=== PATIENT | female | born 1980 | race Caucasian/White ===

== ENCOUNTER 2016-07-31 10:44 | Emergency (ER) | payer OTHER ==
[~2016-07-31] VITALS: Ht 170.2 cm; Wt 90.5 kg
[2016-07-31] MEDS ORDERED: MOTRIN800 MG PO (12:56)
[2016-07-31] MEDS ORDERED: DIFLUCAN150 MG PO (12:56)
[2016-07-31 13:28] VITALS: BP 119/75
== END 2016-07-31 13:28 | disposition home or self-care (01) ==
LOC: EME 10:44
DX: H66.92 Otitis media, unspecified, left ear (principal); H72.92 Unspecified perforation of tympanic membrane, left ear
CPT/HCPCS: 99281; 99283

== ENCOUNTER 2016-08-16 17:18 | Emergency (ER) | payer OTHER ==
[~2016-08-16] VITALS: Ht 170.2 cm; Wt 87.0 kg
[~2016-08-16 17:18] MED LIST: DIFLUCAN150 MG PO; MOTRIN800 MG PO
[2016-08-16 17:53] LABS: HEMATOCRIT 38.4 % (36.0-46.0); MCH 31.3 PG (29.0-34.0); MCHC 33.3 G/DL (30.0-36.0); MCV 93.9 FL (83-99); MEAN PLAT.VOLUME 10.5 uM^3 (9.5-12.4); PLATELET COUNT 321 K/uL (156-360); RBC DIS.WIDTH-CV 12.3 % (11.8-14.6); RBC DIS.WIDTH-SD 42.5 % (39-53); RED BLOOD COUNT 4.09 M/uL (3.80-5.20); WHITE BLOOD COUNT 7.3 K/uL (4.1-10.2)
[2016-08-16 18:02] LABS: CHLORIDE 108 mEq/L (99-109); POTASSIUM 4.2 mEq/L (3.7-5.4); SODIUM 141 mEq/L (136-147)
[2016-08-16 18:04] LABS: GLUCOSE 92 mg/dL (70-99)
[2016-08-16 18:05] LABS: ADD MIUA? YES; BILIRUBIN NEGATIVE; BLOOD NEGATIVE; GLUCOSE (STRIP) NEGATIVE; KETONES 5; LEUKOCYTES NEGATIVE; NITRITE NEGATIVE; PROTEIN (STRIP) NEGATIVE; SPECIFIC GRAVITY 1.033 (1.000-1.030); UROBILINOGEN 0.2 MG/DL (0.2-1.0)
[2016-08-16 18:05] LABS: ANION GAP 9 MEQ/L (2-14)
[2016-08-16 18:06] LABS: TOTAL BILIRUBIN 0.4 mg/dL (0.0-1.0)
[2016-08-16 18:08] LABS: COLOR YELLOW ((YELLOW))
[2016-08-16 18:08] LABS: ALKALINE PHOSPHATASE 82 IU/L (3-129); GFR ESTIMATE (CALCULATED) > 59 mL/min/
[2016-08-16 18:09] LABS: UREA NITROGEN (BUN) 24 mg/dL (9-23)
[2016-08-16 18:10] LABS: DIRECT BILIRUBIN 0.1 mg/dL (0.0-0.3)
[2016-08-16 18:11] LABS: LIPASE 46 U/L (1.0-51.0)
[2016-08-16 18:17] LABS: QUANTITATIVE HCG < 4.0 MIU/ML
[2016-08-16] MEDS ORDERED: ZOFRAN4 MG PO (18:25)
[2016-08-16 18:26] LABS: AMORPHOUS URATES CRYSTALS 1+; BACTERIA RARE /HPF; CASTS NONE SEEN /LPF; CRYSTALS PRESENT; EPITHELIAL CELLS RARE /HPF; MUCUS 1+ /LPF; RED BLOOD CELLS RARE /HPF (0-5); UCUL ADDED? NO; WHITE BLOOD CELLS NONE SEEN /HPF (0-5)
[2016-08-16 18:35] VITALS: BP 125/71
== END 2016-08-16 18:36 | disposition home or self-care (01) ==
LOC: EME 17:18
DX: R16.0 Hepatomegaly, not elsewhere classified (principal); R53.83 Other fatigue; R25.8 Other abnormal involuntary movements; R11.0 Nausea; R06.00 Dyspnea, unspecified; G89.29 Other chronic pain; R10.11 Right upper quadrant pain; R19.7 Diarrhea, unspecified; F10.21 Alcohol dependence, in remission
CPT/HCPCS: 80053; 81003; 82248; 83690; 84702; 85027; 99281; 99284; J8540

== ENCOUNTER 2016-09-23 14:12 | Emergency (ER) | payer OTHER ==
[~2016-09-23] VITALS: Ht 170.2 cm; Wt 91.4 kg
[~2016-09-23 14:12] MED LIST changes: +ZOFRAN4 MG PO
[2016-09-23 15:57] VITALS: BP 109/75
== END 2016-09-23 15:58 | disposition home or self-care (01) ==
LOC: EME 14:12
DX: M79.671 Pain in right foot (principal); S92.351K Displaced fracture of fifth metatarsal bone, right foot, subsequent encounter for fracture with nonunion; X58.XXXD Exposure to other specified factors, subsequent encounter
CPT/HCPCS: 73630; 99281; 99283

== ENCOUNTER 2017-03-28 12:33 | Emergency (ER) | payer SELFPAY ==
[~2017-03-28] VITALS: Ht 170.2 cm; Wt 83.4 kg
[2017-03-28] MEDS ORDERED: VISTARIL50 MG PO (15:00)
[2017-03-28 15:17] VITALS: BP 156/83
== END 2017-03-28 15:17 | disposition home or self-care (01) ==
LOC: EME 12:33
DX: F41.9 Anxiety disorder, unspecified (principal); M54.9 Dorsalgia, unspecified; Z73.3 Stress, not elsewhere classified
CPT/HCPCS: 99281; 99283

== ENCOUNTER 2017-04-08 22:34 | Emergency (ER) | payer OTHER ==
[~2017-04-08] VITALS: Ht 170.2 cm; Wt 81.8 kg
[~2017-04-08 22:34] MED LIST changes: +VISTARIL50 MG PO
[2017-04-09] MEDS ORDERED: GABAPENTIN100 MG PO (00:46)
[2017-04-09] MEDS ORDERED: MEDROL DOSEPAK4 MG PO (00:46)
[2017-04-09] MEDS ORDERED: NORCO 5/3251 TABLET PO (00:46)
[2017-04-09 01:06] VITALS: BP 136/89
== END 2017-04-09 01:07 | disposition home or self-care (01) ==
LOC: EME 22:34
DX: S16.1XXA Strain of muscle, fascia and tendon at neck level, initial encounter (principal); G37.3 Acute transverse myelitis in demyelinating disease of central nervous system; G89.29 Other chronic pain; F41.9 Anxiety disorder, unspecified; R20.2 Paresthesia of skin
CPT/HCPCS: 72125; 99281; 99284

== ENCOUNTER 2017-04-14 11:46 | Emergency (ER) | payer OTHER ==
[~2017-04-14] VITALS: Ht 170.2 cm; Wt 85.7 kg
[~2017-04-14 11:46] MED LIST changes: +GABAPENTIN100 MG PO; +MEDROL DOSEPAK4 MG PO; +NORCO 5/3251 TABLET PO
[2017-04-14 13:15] LABS: EOSINOPHIL COUNT 0.2 K/uL (0-0.3); HEMATOCRIT 37.3 % (36.0-46.0); IMMATURE GRANULOCYTE (%) 0.3 % (0.0-0.7); INSTRUMENT ABS NEUTROPHIL CT 4.5 K/uL; LYMPHOCYTE COUNT 2.5 K/uL (1.0-2.8); MCH 30.4 PG (29.0-34.0); MCV 92.3 FL (83-99); MEAN PLAT.VOLUME 9.7 uM^3 (9.5-12.4); MONOCYTE (%) 7.1 % (3-12); MONOCYTE COUNT 0.6 K/uL (0-0.8); NEUTROPHIL (%) 56.8 % (45-76); NEUTROPHIL COUNT 4.5 K/uL (1.8-6.4); PLATELET COUNT 265 K/uL (156-360); RBC DIS.WIDTH-CV 14.6 % (11.8-14.6); RBC DIS.WIDTH-SD 49.5 % (39-53); RED BLOOD COUNT 4.04 M/uL (3.80-5.20); WHITE BLOOD COUNT 7.9 K/uL (4.1-10.2)
[2017-04-14 13:24] LABS: CHLORIDE 105 mEq/L (99-109); POTASSIUM 3.5 mEq/L (3.7-5.4); SODIUM 140 mEq/L (136-147)
[2017-04-14 13:26] LABS: GLUCOSE 84 mg/dL (70-99)
[2017-04-14 13:27] LABS: ANION GAP 13 MEQ/L (2-14)
[2017-04-14 13:30] LABS: GFR ESTIMATE (CALCULATED) > 59 mL/min/
[2017-04-14 13:31] LABS: UREA NITROGEN (BUN) 19 mg/dL (9-23)
[2017-04-14 14:09] LABS: C-REACTIVE PROTEIN < 1.0 MG/L (0-10)
[2017-04-14 14:35] LABS: ERTH.SED.RATE 5 MM/HR (0-20)
[2017-04-14] MEDS ORDERED: PERCOCET 5/31 TABLET PO (14:46)
[2017-04-14] MEDS ORDERED: PREDNISONE10 MG PO (14:46)
[2017-04-14 15:15] VITALS: BP 145/91
== END 2017-04-14 15:16 | disposition home or self-care (01) ==
LOC: EME 11:46
PROVIDERS: Physician Assistant
DX: M54.12 Radiculopathy, cervical region (principal)
CPT/HCPCS: 72156; 80048; 85025; 85651; 86140; 99281; 99284; J1885; J2930; J3010; J7030

== ENCOUNTER 2017-04-20 21:55 | Emergency (ER) | payer OTHER ==
[~2017-04-20] VITALS: Ht 170.2 cm; Wt 83.8 kg
[~2017-04-20 21:55] MED LIST changes: +PERCOCET 5/31 TABLET PO; +PREDNISONE10 MG PO
[2017-04-20 23:00] LABS: CHLORIDE 108 mEq/L (99-109); SODIUM 145 mEq/L (136-147)
[2017-04-20 23:02] LABS: GLUCOSE 84 mg/dL (70-99)
[2017-04-20 23:03] LABS: ANION GAP 16 MEQ/L (2-14)
[2017-04-20 23:06] LABS: GFR ESTIMATE (CALCULATED) > 59 mL/min/
[2017-04-20 23:07] LABS: UREA NITROGEN (BUN) 24 mg/dL (9-23)
[2017-04-21] MEDS ORDERED: VALIUM5 MG PO (00:41)
[2017-04-21] MEDS ORDERED: ZANTAC300 MG PO (00:41)
[2017-04-21 01:09] VITALS: BP 125/77
== END 2017-04-21 01:11 | disposition home or self-care (01) ==
LOC: EME 21:55
PROVIDERS: Physician Assistant
DX: R13.10 Dysphagia, unspecified (principal); K22.9 Disease of esophagus, unspecified; F32.9 Major depressive disorder, single episode, unspecified
CPT/HCPCS: 70360; 71020; 80048; 81003; 99281; 99284

== ENCOUNTER 2017-05-01 10:15 | Emergency (ER) | payer OTHER ==
[~2017-05-01] VITALS: Ht 170.2 cm; Wt 98.0 kg
[~2017-05-01 10:15] MED LIST changes: +VALIUM5 MG PO; +ZANTAC300 MG PO
[2017-05-01 13:11] LABS: HEMATOCRIT 38.6 % (36.0-46.0); MCH 31.5 PG (29.0-34.0); MCHC 33.2 G/DL (30.0-36.0); MCV 95.1 FL (83-99); MEAN PLAT.VOLUME 9.7 uM^3 (9.5-12.4); PLATELET COUNT 289 K/uL (156-360); RBC DIS.WIDTH-SD 56.1 % (39-53); RED BLOOD COUNT 4.06 M/uL (3.80-5.20); WHITE BLOOD COUNT 7.6 K/uL (4.1-10.2)
[2017-05-01 13:20] LABS: CHLORIDE 105 mEq/L (99-109); POTASSIUM 4.1 mEq/L (3.7-5.4); SODIUM 140 mEq/L (136-147)
[2017-05-01 13:22] LABS: GLUCOSE 108 mg/dL (70-99)
[2017-05-01 13:24] LABS: ANION GAP 13 MEQ/L (2-14); TOTAL BILIRUBIN 0.6 mg/dL (0.0-1.0)
[2017-05-01 13:26] LABS: ALKALINE PHOSPHATASE 90 IU/L (3-129); GFR ESTIMATE (CALCULATED) > 59 mL/min/
[2017-05-01 13:27] LABS: UREA NITROGEN (BUN) 18 mg/dL (9-23)
[2017-05-01 14:06] LABS: ADD MIUA? YES; BILIRUBIN NEGATIVE; BLOOD LARGE; COLOR YELLOW ((YELLOW)); GLUCOSE (STRIP) NEGATIVE; KETONES NEGATIVE; LEUKOCYTES NEGATIVE; NITRITE NEGATIVE; PROTEIN (STRIP) 30; UROBILINOGEN 0.2 MG/DL (0.2-1.0)
[2017-05-01 14:15] LABS: BACTERIA RARE /HPF; EPITHELIAL CELLS RARE /HPF; MUCUS TRACE /LPF; RED BLOOD CELLS NONE SEEN /HPF (0-5); UCUL ADDED? NO; WHITE BLOOD CELLS 0-5 /HPF (0-5)
[2017-05-01] MEDS ORDERED: PREDNISONE10 MG PO (14:35)
[2017-05-01 14:53] VITALS: BP 160/95
== END 2017-05-01 14:55 | disposition home or self-care (01) ==
LOC: EME 10:15
PROVIDERS: Nurse Practitioner Family
DX: G62.9 Polyneuropathy, unspecified (principal); H53.8 Other visual disturbances; G37.3 Acute transverse myelitis in demyelinating disease of central nervous system; F32.9 Major depressive disorder, single episode, unspecified
CPT/HCPCS: 70450; 80053; 81003; 85027; 99281; 99284

== ENCOUNTER 2017-05-09 09:25 | Inpatient (IN) | payer OTHER ==
[~2017-05-09] VITALS: Ht 162.6 cm; Wt 83.9 kg
[2017-05-09 11:07] LABS: MCH 32.6 PG (29.0-34.0); MCHC 34.1 G/DL (30.0-36.0); MCV 95.6 FL (83-99); RBC DIS.WIDTH-CV 16.3 % (11.8-14.6); RBC DIS.WIDTH-SD 58.1 % (39-53); RED BLOOD COUNT 4.29 M/uL (3.80-5.20); WHITE BLOOD COUNT 6.1 K/uL (4.1-10.2)
[2017-05-09 11:13] LABS: CHLORIDE 108 mEq/L (99-109); POTASSIUM 4.4 mEq/L (3.7-5.4); SODIUM 148 mEq/L (136-147)
[2017-05-09 11:16] LABS: GLUCOSE 78 mg/dL (70-99)
[2017-05-09 11:17] LABS: ANION GAP 20 MEQ/L (2-14)
[2017-05-09 11:18] LABS: TOTAL BILIRUBIN 0.6 mg/dL (0.0-1.0)
[2017-05-09 11:19] LABS: ALKALINE PHOSPHATASE 79 IU/L (3-129); SERUM ETHYL ALCOHOL 357 mg/dL
[2017-05-09 11:20] LABS: GFR ESTIMATE (CALCULATED) > 59 mL/min/
[2017-05-09 11:21] LABS: UREA NITROGEN (BUN) 15 mg/dL (9-23)
[2017-05-09 11:31] LABS: QUANTITATIVE HCG < 4.0 MIU/ML
[2017-05-09 11:37] LABS: MEAN PLAT.VOLUME 11.4 uM^3 (9.5-12.4); PLAT.SUFFICIENCY ADEQUATE
[2017-05-09 11:47] LABS: PLATELET COUNT 187 K/uL (156-360)
[2017-05-09 13:28] LABS: ADD MIUA? YES; BILIRUBIN NEGATIVE; BLOOD SMALL; COLOR YELLOW ((YELLOW)); GLUCOSE (STRIP) NEGATIVE; KETONES NEGATIVE; LEUKOCYTES MODERATE; NITRITE NEGATIVE; PROTEIN (STRIP) 30; SPECIFIC GRAVITY 1.016 (1.000-1.030); UROBILINOGEN 0.2 MG/DL (0.2-1.0)
[2017-05-09 13:51] LABS: BACTERIA 3+ /HPF; CASTS NONE SEEN /LPF; CRYSTALS NONE SEEN; EPITHELIAL CELLS 3+ /HPF; MUCUS NONE SEEN /LPF; UCUL ADDED? YES; WHITE BLOOD CELLS 15-20 /HPF (0-5)
[2017-05-09 19:23] LABS: MAGNESIUM 2.7 mg/dL (1.3-2.7)
[2017-05-09 21:53] VITALS: BP 134/81
[2017-05-09 23:47] VITALS: BP 116/71
[2017-05-10 04:00] VITALS: BP 128/78
[2017-05-10 08:08] VITALS: BP 125/83
[2017-05-10] MEDS ORDERED: WELLBUTRIN XL150 MG PO (10:16)
[2017-05-10] MEDS ORDERED: SERTRALINE HCL100 MG PO (10:17)
[2017-05-10 11:03] LABS: EOSINOPHIL (%) 0 % (0-5); HEMATOCRIT 40.7 % (36.0-46.0); IMMATURE GRANULOCYTE (%) 3.1 % (0.0-0.7); IMMATURE GRANULOCYTE COUNT 0.2 K/uL; INSTRUMENT ABS NEUTROPHIL CT 4.9 K/uL; MCH 32.1 PG (29.0-34.0); MCHC 33.2 G/DL (30.0-36.0); MCV 96.7 FL (83-99); MONOCYTE COUNT 0.6 K/uL (0-0.8); NEUTROPHIL (%) 72.6 % (45-76); NEUTROPHIL COUNT 4.9 K/uL (1.8-6.4); RBC DIS.WIDTH-CV 16.2 % (11.8-14.6); RBC DIS.WIDTH-SD 57.8 % (39-53); RED BLOOD COUNT 4.21 M/uL (3.80-5.20); WHITE BLOOD COUNT 6.7 K/uL (4.1-10.2)
[2017-05-10 11:19] LABS: ANION GAP 12 MEQ/L (2-14); CHLORIDE 107 MEQ/L (99-109); SAMPLE HEMOLYSIS CHECK 0; SAMPLE ICTERIC CHECK 0; SAMPLE LIPEMIA CHECK 0; SODIUM 144 MEQ/L (136-147)
[2017-05-10 11:21] LABS: MEAN PLAT.VOLUME 9.4 uM^3 (9.5-12.4); PLATELET COUNT 263 K/uL (156-360)
[2017-05-10 11:25] LABS: GFR ESTIMATE (CALCULATED) > 59 mL/min/; SERUM ETHYL ALCOHOL 181 mg/dL; UREA NITROGEN (BUN) 15 mg/dL (9-23)
[2017-05-10 11:27] VITALS: BP 127/77
[2017-05-10 11:29] LABS: GLUCOSE 100 mg/dL (70-99)
[2017-05-10 15:42] VITALS: BP 137/82
[2017-05-10 19:30] VITALS: BP 141/93
[2017-05-10 23:52] VITALS: BP 101/62
[2017-05-11 06:53] LABS: ANION GAP 11 MEQ/L (2-14); CHLORIDE 109 MEQ/L (99-109); GFR ESTIMATE (CALCULATED) > 59 mL/min/; GLUCOSE 84 mg/dL (70-99); POTASSIUM 3.9 MEQ/L (3.7-5.4); SAMPLE HEMOLYSIS CHECK 0; SAMPLE ICTERIC CHECK 0; SAMPLE LIPEMIA CHECK 0; SERUM ETHYL ALCOHOL 390 mg/dL; SODIUM 145 MEQ/L (136-147); UREA NITROGEN (BUN) 17 mg/dL (9-23)
[2017-05-11 07:45] VITALS: BP 126/79
[2017-05-11 11:51] VITALS: BP 131/71
[2017-05-11 16:54] VITALS: BP 153/83
[2017-05-11 23:40] VITALS: BP 157/99
[2017-05-12 03:45] VITALS: BP 150/97
[2017-05-12 07:45] VITALS: BP 148/86
[2017-05-12] MEDS ORDERED: CHLORDIAZEPOXID25 MG PO (10:41)
[2017-05-12] MEDS ORDERED: CELEBREX200 MG PO ×2 (10:41→11:28)
[2017-05-12] MEDS ORDERED: PREDNISONE20 MG PO (10:41)
[2017-05-12] MEDS ORDERED: LYRICA50 MG PO (10:41)
[2017-05-12] MEDS ORDERED: ARIPIPRAZOLE2 MG PO (10:41)
[2017-05-12] MEDS ORDERED: FAMOTIDINE20 MG PO (10:41)
[2017-05-12] MEDS ORDERED: PREDNISONE10 MG PO (11:28)
[2017-05-12 12:19] VITALS: BP 137/80
== END 2017-05-12 12:38 | disposition home or self-care (01) | DRG 880 ==
LOC: EME 09:25 → EDOF 18:49 → ENRESERV 18:52 → 5EAST 20:53
PROVIDERS: Emergency Medicine; Family Medicine Sports Medicine
DX: F41.1 Generalized anxiety disorder (principal); G62.9 Polyneuropathy, unspecified; E51.8 Other manifestations of thiamine deficiency; F10.229 Alcohol dependence with intoxication, unspecified; Y90.8 Blood alcohol level of 240 mg/100 ml or more; S16.1XXA Strain of muscle, fascia and tendon at neck level, initial encounter; X50.0XXA Overexertion from strenuous movement or load, initial encounter; Y92.512 Supermarket, store or market as the place of occurrence of the external cause; Y99.0 Civilian activity done for income or pay; F41.0 Panic disorder [episodic paroxysmal anxiety]; R27.0 Ataxia, unspecified; E03.9 Hypothyroidism, unspecified; G89.29 Other chronic pain; F41.8 Other specified anxiety disorders; Z91.14 Patient's other noncompliance with medication regimen
CPT/HCPCS: 70553; 72040; 80048; 80053; 81003; 82140; 83735; 84439; 84443; 84702; 85025; 85027; 87086; 99281; 99285; G0480; J1650; J2060; J2930; J3411; J3475; J7030; J7050; J7512